=== PATIENT | male | born 1945 | race Caucasian/White ===

== ENCOUNTER 2020-07-05 05:55 | Inpatient (IN) ==
--- NOTE | 2020-06-20 11:46 | PAT Medication Instructions ---
Medication Instructions Date of Service June 20, 2020 Home Medications atorvastatin 20 mg PO HS cholecalciferol (vitamin D3) [Vitamin D3] 100 mcg PO BID coQ10 (ubiquinol) 200 mg PO QPM diclofenac sodium 75 mg PO BID ferrous gluconate 324 mg PO QPM metformin 1,000 mg PO BID multivitamin 1 tab PO QAM pregabalin [Lyrica] 100 mg PO QID sitagliptin [Januvia] 100 mg PO BID ASK your surgeon for instructions diclofenac sodium 75 mg PO BID STOP taking 2 weeks before surgery (or as soon as possible if surgery is within 2 weeks) coQ10 (ubiquinol) 200 mg PO QPM DO NOT take the morning of surgery cholecalciferol (vitamin D3) [Vitamin D3] 100 mcg PO BID metformin 1,000 mg PO BID multivitamin 1 tab PO QAM sitagliptin [Januvia] 100 mg PO BID Take morning of surgery With a small sip of water, OTHERWISE NOTHING TO EAT OR DRINK AFTER MIDNIGHT: pregabalin [Lyrica] 100 mg PO QID Take evening before surgery atorvastatin 20 mg PO HS cholecalciferol (vitamin D3) [Vitamin D3] 100 mcg PO BID ferrous gluconate 324 mg PO QPM metformin 1,000 mg PO BID pregabalin [Lyrica] 100 mg PO QID sitagliptin [Januvia] 100 mg PO BID Other Notes If you have any questions please call us at [phone] or [phone] or [phone] or [phone]
--- NOTE | 2020-06-21 11:50 | Anesthesiology Consultation ---
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 Uses PPE. Follows COVID precaution guidelines. No known COVID-19 positive contacts or current COVID-19 related symptoms. Patient fully vaccinated. Surgeon arranging preop COVID testing (scheduled 06/28; [facility]). Awaiting results. - Check BSG AM DOS Chart Review Chart Review: Acceptable Risk for Surgery and Patient seen in Pre Admission Testing Teaching & Discussion Pre-Anesthesia Teaching/Discussion Notes: Instructed NPO after midnight before surgery,except medications with 15 cc of water. Medication instructions provided according to the PAT guidelines. History Surgery Operation Date: 07/05/20 13:15 Proposed Procedures p L3-L5 Decompression Fusion, Spinal Cord Monitoring - Christian Mitchell, Height/Weight Height: 5 ft 11 in Weight: 117.5 kg Allergies Allergy/AdvReac Type Severity Reaction Status Date / Time Sulfa (Sulfonamide Allergy Unknown Unknown Verified 06/21/20 11:46 Antibiotics) SALOMÓN Inhibitors AdvReac Unknown Dyspnea, Verified 06/21/20 11:46 throat swelling Medications Home Medications Medication Instructions Recorded Confirmed Last Taken atorvastatin 20 mg PO HS 06/18/20 06/18/20 Unknown cholecalciferol (vitamin D3) 100 mcg PO BID 06/18/20 06/18/20 Unknown [Vitamin D3] coQ10 (ubiquinol) 200 mg PO QPM 06/18/20 06/18/20 Unknown diclofenac sodium 75 mg PO BID 06/18/20 06/18/20 Unknown ferrous gluconate 324 mg PO QPM 06/18/20 06/18/20 Unknown metformin 1,000 mg PO BID 06/18/20 06/18/20 Unknown multivitamin 1 tab PO QAM 06/18/20 06/18/20 Unknown pregabalin [Lyrica] 100 mg PO QID 06/18/20 06/18/20 Unknown sitagliptin [Januvia] 100 mg PO BID 06/18/20 06/18/20 Unknown Lantus U-100 Insulin 24 units INJ HS 06/21/20 06/21/20 Unknown insulin lispro 8 units INJ TIDWMEAL 06/21/20 06/21/20 Unknown Past Medical History Medical History Cancer Bladder Cancer Right kidney (20 years ago) s/p right neprectomy Chronic back pain with hip/LE radiculopathy Chronic back pain + neck Diabetes mellitus, type 2 IDDM Hyperlipidemia Obesity Sleep apnea No device Exercise / Class Metabolic Activity III < 4 Walking/Shop/Light housework Past Surgical History Surgical History H/O reduction of closed fracture Leg History of bladder surgery Polyp removal History of colonoscopy History of esophagogastroduodenoscopy (EGD) History of nephrectomy, right History of open reduction and internal fixation (ORIF) procedure Right ankle History of repair of rotator cuff Left Past Anesthesia History No Hx of Anesthesia Complications and No Family Hx of Anesthesia Complications History of PONV No Hx of PONV and No Hx of Motion Sickness Social History Smoking Status: Former smoker Do You Dip or Chew Tobacco: No Smoking End Date: 2017 Hx Alcohol Use: Yes Alcohol type: beer alcohol intake frequency: holidays/special occasions only Hx Substance Use: No Review of Systems Patient denies chest pain, shortness of breath, fever, chills, cough, wheezing, palpitations. Physical Exam Vital Signs VITALS BP 121/75 P 75 TEMP 98.0 SP02 94%RA RESP 16 PHYSICAL Full cervical extension range of motion. Full TMJ range of motion. TMD 3 finger breaths Mallampati Score 3 Dentition: missing teeth (molars) Lungs: clear throughout to auscultation Cardiac: regular rate and rhythm, no murmurs noted Spine: normal Carotid arteries: negative bruit Extremities: no edema Testing Laboratory Results Blood Type A Positive 06/21/20 12:13 Antibody Screen NEGATIVE 06/21/20 12:13 06/17/20 WBC 6.05 H/H 12.5/39.6 PLATELETS 216 SODIUM 137 POTASSIUM 4.1 CHLORIDE 101 CO2 29.2 BUN 18.9 CREATININE 0.91 GLUCOSE 224 HGBA1C 6.6% PT 10.5 PTT 31.7 INR 0.92 UA negative Electrocardiogram Date: 06/21/20 SR with marked sinus arrhythmia at 73bpm. PACs. NS TWA. Chest X-Ray Date: 06/17/20 Findings: + NAD
--- NOTE | 2020-06-22 06:27 | Electrocardiogram Report ---
Test Reason : Blood Pressure : / mmHG Vent. Rate : 073 BPM Atrial Rate : 073 BPM P-R Int : 178 ms QRS Dur : 090 ms QT Int : 332 ms P-R-T Axes : 087 087 063 degrees QTc Int : 365 ms Sinus rhythm with marked sinus arrhythmia Premature atrial complexes Nonspecific T wave abnormality Abnormal ECG No previous ECGs available Confirmed by Claudio Cuevas ([id number]) on 06/22/2020 6:26:42 AM Referred By: Christian Mitchell Confirmed By:Claudio Cuevas
[2020-07-05] MEDS ORDERED: ACETAMINOPHEN 500 MG TAB PO SCH (06:00)
[2020-07-05] MEDS ORDERED: CeleBREX 200 MG CAP PO SCH (06:00)
[2020-07-05] MEDS ORDERED: GABAPENTIN 300 MG CAP PO SCH (06:00)
[2020-07-05] MEDS ORDERED: ceFAZolin 2000MG 2,000 MG/15 ML SYR IV SCH (06:00)
[2020-07-05] MEDS ORDERED: LR 15ML/HR IV SCH (06:00)
[2020-07-05] MEDS ORDERED: MIDAZOLAM HCL 1 MG/ML 2ML VIAL ONE (06:49)
[2020-07-05] MEDS ORDERED: fentaNYL citrate 100 MCG/2 ML VIAL ONE (06:49)
[2020-07-05] MEDS ORDERED: PROPOFOL IV EMULSION 10 MG/ML 20 ML VIAL IV ONE (06:49)
[2020-07-05] MEDS ORDERED: GLYCOPYRROLATE 0.2 MG/ML VIAL ONE (06:49)
[2020-07-05] MEDS ORDERED: ONDANSETRON INJ 2 MG/ML 2 ML VIAL ONE (06:49)
[2020-07-05] MEDS ORDERED: NEOSTIGMINE METHYLSULFATE 1 MG/ML 10ML VIAL ONE (06:49)
[2020-07-05] MEDS ORDERED: DEXAMETHASONE SOD INJ 4 MG/ML VIAL ONE (06:49)
[2020-07-05] MEDS ORDERED: LIDOCAINE HCL 2% 2 ML VIAL/AMP(20MG/ML) INFIL ONE (06:49)
[2020-07-05] MEDS ORDERED: SUGAMMADEX SODIUM 200 MG/2 ML VIAL IV ONE (07:01)
[2020-07-05] MEDS ORDERED: BUPIVACAINE 0.5 % 5 MG/1 ML MPF 30ML VIAL ONE (07:20)
[2020-07-05] MEDS ORDERED: fentaNYL citrate 100 MCG/2 ML VIAL IV PRN (07:22)
[2020-07-05] MEDS ORDERED: PROMETHAZINE HCL 6.25 MG in SODIUM CHLORIDE 0.9% 50 ML IV PRN (07:22)
[2020-07-05] MEDS ORDERED: ONDANSETRON INJ 2 MG/ML 2 ML VIAL IV PRN ×2 (07:22→11:04)
[2020-07-05] MEDS ORDERED: ePHEDrine sulfate 50 MG/ML AMP IV PRN (07:22)
[2020-07-05] MEDS ORDERED: ATROPINE SULFATE 0.1 MG/ML 10ML SYR IV PRN (07:22)
--- NOTE | 2020-07-05 07:34 | History & Physical Bridge Note ---
Date of Service July 05, 2020 History & Physical Bridge Note I have examined the patient, reviewed the History & Physical and in the interval since the performance of the History & Physical I have noted the following changes of clinical significance: no changes noted
--- NOTE | 2020-07-05 07:35 | History & Physical Report ---
Date of Service July 05, 2020 Assessment & Plan (1) Neurogenic claudication due to lumbar spinal stenosis: Admission and Anticipated Discharge Date Admission Date: L3-L5 decompression fusion History of Present Illness Chief Complaint: Back and leg pain Primary Care Provider: Jacob Bear DO This is a 75-year-old male presents with chronic persistent back and leg pain. Failing course of nonoperative care is here for surgical invention. Allergies Allergy/AdvReac Type Severity Reaction Status Date / Time Sulfa (Sulfonamide Allergy Unknown Unknown Verified 07/05/20 06:32 Antibiotics) SALOMÓN Inhibitors AdvReac Unknown Dyspnea, Verified 07/05/20 06:32 throat swelling Home Medications Medication Instructions Recorded Confirmed Type atorvastatin 20 mg PO HS 06/18/20 07/05/20 History cholecalciferol (vitamin D3) 100 mcg PO BID 06/18/20 07/05/20 History [Vitamin D3] coQ10 (ubiquinol) 200 mg PO QPM 06/18/20 07/05/20 History diclofenac sodium 75 mg PO BID 06/18/20 07/05/20 History ferrous gluconate 324 mg PO QPM 06/18/20 07/05/20 History metformin 1,000 mg PO BID 06/18/20 07/05/20 History multivitamin 1 tab PO QAM 06/18/20 07/05/20 History pregabalin [Lyrica] 100 mg PO QID 06/18/20 07/05/20 History sitagliptin [Januvia] 100 mg PO DAILY 06/18/20 07/05/20 History Lantus U-100 Insulin 24 units INJ HS 06/21/20 07/05/20 History insulin lispro 8 units INJ TIDWMEAL 06/21/20 07/05/20 History gabapentin 100 mg PO QID 07/05/20 07/05/20 History Past Med/Surg History Medical History Cancer Bladder Cancer Right kidney (20 years ago) s/p right neprectomy Chronic back pain with hip/LE radiculopathy Chronic back pain + neck Diabetes mellitus, type 2 IDDM Hyperlipidemia Obesity Sleep apnea No device Surgical History H/O reduction of closed fracture Leg History of bladder surgery Polyp removal History of colonoscopy History of esophagogastroduodenoscopy (EGD) History of nephrectomy, right History of open reduction and internal fixation (ORIF) procedure Right ankle History of repair of rotator cuff Left Social History Smoking Status: Former smoker Smoking End Date: Quit 2017; Second Hand Exposure: Yes (PARENTS SMOKED); Do You Dip or Chew Tobacco: No; Hx Alcohol Use: Yes Alcohol type: beer Hx Substance Use: No Preferred Language: Luxembourgish Communication Ability: Effective Family Worker Required: No Beliefs That Will Affect Care: None Current Living Situation: Alone Other Information That Helps Us Care for You: No Feels Safe at Home: Yes Safety Concerns: Feels Safe At This Time Assistive Devices: Glasses and Hearing Aid - Bilateral Physical Exam Physical Exam: Patient is alert and oriented Heart regular in rhythm Lungs clear to auscultation Results & Data ([facility]) Vital Signs (Past 12 Hours) Vital Signs Temp Pulse Resp BP Pulse Ox 07/05/20 06:57 36.9 C 07/05/20 06:26 37.4 C 80 20 136/87 93
[2020-07-05] MEDS ORDERED: HYDROmorphone INJ 2 MG/ML SYR/VIAL ONE (08:46)
[2020-07-05] MEDS ORDERED: FLOSEAL HEMOSTATIC MATRIX 10ML TOP ONE (09:18)
--- NOTE | 2020-07-05 09:27 | Operative Report ---
Post Operative Report Pre & Post Diagnosis Operation Date: 07/05/20 07:45 Pre-Op Diagnosis: Neurogenic claudication due to lumbar spinal stenosis Post-Op Diagnosis: Neurogenic claudication due to lumbar spinal stenosis I identified the patient and participated in the time-out.: Yes Procedure Operation Date: 07/05/20 07:45 Actual Procedures #1 lumbar decompression bilateral medial facetectomies and foraminotomies L3-4 and L4-5. #2 posterior spinal fusion L4-5. #3 placement posterior instrumentation L4-5. #4 interbody fusion L4-5. #5 placement peek cage 15 x 26 mm at L4-5. #6 placement locally harvested morselized autograft and posterior gutters. #7 placement of I factor bone graft in the interbody space and posterior lateral gutters. Surgeon Christian Mitchell, DO Chemical Librarian Samuel Savage Estimated Blood Loss 400 Findings See Below The patient is 5 foot 11 inches tall weighing over 115 kg with a BMI in excess of 35. Patient's body habitus did contribute to significant technical diff iculty requiring her deepest retractors longus instruments in order to perform his procedure. This had at least 50% increase to the operative time. Specimens None Indications This is a 75-year-old male who presents above-mentioned diagnosis after failing course of nonoperative care is here for surgical invention. Description of Procedure Patient was met with identified informed consent obtained. Patient was then taken to the operative suite underwent a patient placed in prone position injectable top Paul frame. All bony prominences well-padded eyes inspected to ensure no external pressure placed upon the. At this point the lumbar spine is prepped and draped in a sterile fashion. Sharp dissection with the assistance of Bovie cautery performed down to and exposing the lamina and transverse processes of L3-L4 L4-5 bilaterally. From caudal to cephalad fashion complete laminectomy L5 partial laminectomy of L3 was performed including bilateral medial facetectomies and foraminotomies addressing severe spinal stenosis. Pedicle screws were then placed in L4 and L5 bilaterally with assistance of fluoroscopy the proper sized marques placed. By way of a transforaminal portion left complete discectomy was performed endplates curetted to subcortical bleeding bone and a 15 x 26 mm peek cage filled with I factor tapped in position. The rods were then compressed locked in final position bilaterally. The transverse processes of L4 and L5 burred to subcortical being bone. Locally harvested morselized autograft and I factor was placed in the posterior gutters. 15 round TACO drain inserted. The incision was then closed with 1 Vicryl the fascia 2-0 Vicryl subcutaneously and 4 Monocryl for final skin closure. Steri- Strip sterile dressings placed. Patient will continue PACU stable condition. Please note spinal cord monitoring was utilized at the procedure and no changes noted. Lastly Samuel Savage was present at the entire surgery involved the patient positioning complex portions of the surgery and final skin closure. I attest to the content of the Intraoperative Record and any orders documented therein. Any exceptions are noted below.
--- NOTE | 2020-07-05 09:35 | Fluoroscopy Report ---
FL lumbar spine 2-3V CLINICAL HISTORY: L4-L5 decompression. COMPARISON STUDY: None. FLUOROSCOPY TIME: 18 seconds. FLUOROSCOPIC IMAGES: 2 FINDINGS: Fluoroscopy was provided during L4-L5 discectomy, posterior decompression and bilateral ped icle screw fusion. Hardware is intact. There are no unexpected radiopaque foreign bodies. IMPRESSION: Fluoroscopy provided during L4-L5 discectomy, posterior decompression and bilateral pedi jd screw fusion. ACT 112: Negative or not required by law. Electronically signed by: Juanito Snyder M.D. 07/05/2020 9:34 AM
[2020-07-05] MEDS ORDERED: HYDROmorphone INJ 1 MG/ML SYRINGE IV PRN (11:04)
[2020-07-05] MEDS ORDERED: ACETAMINOPHEN 500 MG TAB PO PRN (11:04)
[2020-07-05] MEDS ORDERED: DO NOT ADMINISTER PNEUMOCOCCAL VACCINE PRN (11:04)
[2020-07-05] MEDS ORDERED: FAMOTIDINE 20 MG TAB PO PRN (11:04)
[2020-07-05] MEDS ORDERED: METOCLOPRAMIDE HCL INJ 5 MG/ML 2 ML VIAL IV PRN (11:04)
[2020-07-05] MEDS ORDERED: diphenhydrAMINE Capsule 25 MG CAP PO PRN (11:04)
[2020-07-05] MEDS ORDERED: MAGNESIUM HYDROXIDE SUSP 30 ML UDC PO PRN (11:04)
[2020-07-05] MEDS ORDERED: PROMETHAZINE HCL 12.5 MG in SODIUM CHLORIDE 0.9% 50 ML IV PRN (11:04)
[2020-07-05] MEDS ORDERED: NALOXONE HCL 0.4 MG/1 ML VIAL/CARP IV PRN (11:04)
[2020-07-05] MEDS ORDERED: ONDANSETRON 4 MG OD TAB PO PRN (11:04)
[2020-07-05] MEDS ORDERED: bisacodyL 10 MG SUPP PR PRN (11:04)
[2020-07-05] MEDS ORDERED: oxyCODONE HCL IR 5 MG TAB (IMMEDIATE RELEASE) PO PRN (11:04)
[2020-07-05] MEDS ORDERED: hydrOXYzine HCl 25 MG TAB PO PRN (11:04)
[2020-07-05] MEDS ORDERED: LORazepam 0.5 MG/1 ML VIAL IV PRN (11:04)
[2020-07-05] MEDS ORDERED: DO NOT ADMINISTER FLU VACCINE PRN (11:04)
[2020-07-05] MEDS ORDERED: SOD PHOSPHATE/SOD BIPHOSPHATE ENEMA 132 ML BTL PR PRN (11:04)
[2020-07-05] MEDS ORDERED: HYDROmorphone INJ 0.5 MG/0.5 ML SYR IV PRN (11:04)
[2020-07-05] MEDS ORDERED: ALUMINUM/MAGNESIUM SUSP 30 ML UDC PO PRN (11:04)
[2020-07-05] MEDS ORDERED: ACETAMINOPHEN 1,000 MG/100 ML VIAL IV PRN (11:04)
[2020-07-05] MEDS ORDERED: LORazepam 0.5 MG TAB PO PRN (11:04)
--- NOTE | 2020-07-05 11:08 | Anesthesiology Progress Note ---
Date of Service July 05, 2020 Anesthesia Post Procedure Vital Signs Vital Signs: Temp Pulse Pulse Resp BP BP Pulse Ox 07/05/20 10:50 81 14 135/75 95 07/05/20 10:40 82 14 133/82 98 07/05/20 10:30 36.4 C L 86 14 134/54 L 95 07/05/20 10:20 85 14 153/83 H 97 07/05/20 10:10 89 14 158/78 H 95 07/05/20 10:00 83 15 119/66 94 07/05/20 09:50 36.6 C 90 15 193/104 H 97 07/05/20 06:57 36.9 C 07/05/20 06:26 37.4 C 80 20 136/87 93 Pain Intensity Lower Back: Pain Intensity: 4 Transfer of Care Handoff Completed per policy Notes Mental Status: alert / awake / arousable Patient Amnestic to Procedure: Yes Nausea / Vomiting: adequately controlled Pain: adequately controlled Airway Patency, RR, SpO2: stable & adequate BP & HR: stable & adequate Hydration State: stable & adequate Anesthetic Complications: no major complications apparent
[2020-07-05] MEDS: SODIUM CHLORIDE 0.9% 1000ML 1,000 ML IV SCH ×2 (11:10→17:31)
--- NOTE | 2020-07-05 11:38 | Hospitalist Consultation ---
Date of Consultation July 05, 2020 Assessment & Plan (1) S/P spinal surgery: This is a 75-year-old male with PMH of type 2 diabetes, hyperlipidemia, bladder cancer, history of nephrectomy, EMILY not on cpap, lumbar spine stenosis who is POD#0 s/p lumbar decompression L3-L5 posterior spinal fusion L4-L5 by Dr. Mitchell. POD#0 s/p lumbar decompression L3-L5 posterior spinal fusion L4-L5 by Dr. Mitchell Per ortho for pain control, wound care, anticoagulation and activities Monitor H&H for post operative anemia, continue incentive spirometry, PT/OT when appropriate (2) Diabetes mellitus, type 2: Recent A1c 6.6 from earlier this month, per patient Hold home agents SSI while in-patient Glycemic consult placed BSG AC HS (3) Hyperlipidemia: Continue statin (4) Bladder cancer: Remote history of bladder and kidney cancer in 2000, s/p R nephrectomy (5) Sleep apnea: Not on CPAP, supplemental O2 HS PRN PCP: Chema ([facility]) Dispo: Per primary service Patient seen in collaboration with Dr. Mcgregor. Please see addendum. Supervising Physician Co-Signing Physician Notes pt seen and examined , care co-ordinated with Kelly thao PA-c this is a 75 yo M s/p spinal decompression surgery for chronic low back pain with radiculopathy doing well post op no complain of sob or chest pain , no cough no fever or chills medically stable please refer to further documentation by Kelly Thao PA-C for discussion of other medical issues Samantha Mcgregor MD History of Present Illness Reason for Consultation: Postop medical management Attending Physician: Christian Mitchell DO History of Present Illness This is a 75-year-old male with PMH of type 2 diabetes, hyperlipidemia, history of bladder and renal cancer, history of nephrectomy, EMILY not on CPAP, lumbar spine stenosis who is POD#0 s/p lumbar decompression L3-L5 posterior spinal fusion L4-L5 by Dr. Mitchell. Feeling well post-operatively. Minimal surgical site discomfort at 3/10. Tolerating clear liquids without issue. Denies any chest p ain or shortness of breath. Denies fever, chills, lightheadedness, nausea, vomiting, abdominal pain, dysuria, diarrhea or constipation. Marshall catheter in place draining urine. Follows with Dr. Bear in [facility]. Allergies Allergy/AdvReac Type Severity Reaction Status Date / Time Sulfa (Sulfonamide Allergy Unknown Unknown Verified 07/05/20 06:32 Antibiotics) SALOMÓN Inhibitors AdvReac Unknown Dyspnea, Verified 07/05/20 06:32 throat swelling Home Medications Medication Instructions Recorded Confirmed Type atorvastatin 20 mg PO HS 06/18/20 07/05/20 History cholecalciferol (vitamin D3) 100 mcg PO BID 06/18/20 07/05/20 History [Vitamin D3] coQ10 (ubiquinol) 200 mg PO QPM 06/18/20 07/05/20 History diclofenac sodium 75 mg PO BID 06/18/20 07/05/20 History ferrous gluconate 324 mg PO QPM 06/18/20 07/05/20 History metformin 1,000 mg PO BID 06/18/20 07/05/20 History multivitamin 1 tab PO QAM 06/18/20 07/05/20 History pregabalin [Lyrica] 100 mg PO QID 06/18/20 07/05/20 History sitagliptin [Januvia] 100 mg PO DAILY 06/18/20 07/05/20 History Lantus U-100 Insulin 24 units INJ HS 06/21/20 07/05/20 History insulin lispro 8 units INJ TIDWMEAL 06/21/20 07/05/20 History Patient History Medical History (Updated 07/05/20 @ 12:30 by Kelly Thao PA-C) Cancer Bladder Chronic back pain with hip/LE radiculopathy Chronic back pain + neck Diabetes mellitus, type 2 IDDM Hyperlipidemia Obesity Sleep apnea No device Surgical History (Updated 07/05/20 @ 12:30 by Kelly Thao PA-C) H/O reduction of closed fracture Leg History of bladder surgery Polyp removal History of colonoscopy History of esophagogastroduodenoscopy (EGD) History of nephrectomy, right History of open reduction and internal fixation (ORIF) procedure Right ankle History of repair of rotator cuff Left Family History (Updated 07/05/20 @ 13:11 by Kelly Thao PA-C) Other Cancer Social History Smoking Status: Former smoker Smoking End Date: Quit 2017; Second Hand Exposure: Yes (PARENTS SMOKED); Do You Dip or Chew Tobacco: No; Hx Alcohol Use: Yes Alcohol type: beer Hx Substance Use: No Preferred Language: Botswanan Communication Ability: Effective Business Teacher Required: No Beliefs That Will Affect Care: None Current Living Situation: Alone Other Information That Helps Us Care for You: No Feels Safe at Home: Yes Safety Concerns: Feels Safe At This Time Assistive Devices: Walker Review of Systems Review of Systems: At least ten systems reviewed and negative except as noted in the HPI. Physical Exam Physical Exam: General Appearance: WD/WN, vitals as above, NAD, sitting up in bed, pleasant, conversing easily Head: normocephalic, atraumatic Eyes: normal inspection, PERRL, conjunctivae normal, anicteric sclerae ENT: external ear and nose normal, oropharynx normal Neck: normal visual inspection, trachea midline, no thyromegaly Respiratory: normal respiratory effort, lungs clear to auscultation, no wheeze, rales, rhonchi. No accessory muscle use Cardiovascular: regular rate, rhythm, no murmur, normal peripheral pulses, no BLE edema Abdomen/GI: normal bowel sounds, soft, nontender, no hepatosplenomegaly Extremities/Musculoskeletal: Surgical dressing c/d/i. TACO drain visualized. No cyanosis or clubbing, extremities motor strength 5/5 Neurologic: PERRL, CN's II-XI intact bilaterally and moves all extremities Psychiatric: A+Ox3, euthymic affect Skin: no rashes, normal color, warm/dry Results & Data Results & Data ([facility]) Vital Signs (Past 12 Hours) Vital Signs Temp Pulse Pulse Pulse Resp BP BP 07/05/20 11:26 36.5 C 89 16 127/81 07/05/20 11:04 36.5 C 87 16 152/84 H 07/05/20 10:50 81 14 135/75 07/05/20 10:40 82 14 133/82 07/05/20 10:30 36.4 C L 86 14 134/54 L 07/05/20 10:20 85 14 153/83 H 07/05/20 10:10 89 14 158/78 H 07/05/20 10:00 83 15 119/66 07/05/20 09:50 36.6 C 90 15 193/104 H 07/05/20 06:57 36.9 C 07/05/20 06:26 37.4 C 80 20 136/87 Pulse Ox 07/05/20 11:26 100 07/05/20 11:04 97 07/05/20 10:50 95 07/05/20 10:40 98 07/05/20 10:30 95 07/05/20 10:20 97 07/05/20 10:10 95 07/05/20 10:00 94 07/05/20 09:50 97 07/05/20 06:57 07/05/20 06:26 93 Diagnostic Findings Lumbar Spine X-Ray 07/05/20 07:45 FL lumbar spine 2-3V CLINICAL HISTORY: L4-L5 decompression. COMPARISON STUDY: None. FLUOROSCOPY TIME: 18 seconds. FLUOROSCOPIC IMAGES: 2 FINDINGS: Fluoroscopy was provided during L4-L5 discectomy, posterior decompression and bilateral pedicle screw fusion. Hardware is intact. There are no unexpected radiopaque foreign bodies. IMPRESSION: Fluoroscopy provided during L4-L5 discectomy, posterior decompression and bilateral pedicle screw fusion. ACT 112: Negative or not required by law. Electronically signed by: Juanito Snyder M.D. 07/05/2020 9:34 AM
[2020-07-05] MEDS ORDERED: ROCURONIUM BROMIDE 10 MG/ML 5 ML VIAL IV ONE (12:02)
[2020-07-05] MEDS ORDERED: PHARMACY GLYCEMIC MGMT CONSULT SCH (12:14)
--- NOTE | 2020-07-05 12:14 | Pharmacy Report ---
Pharmacy Glycemic Short Note 2 - Date of Service July 05, 2020 - Glycemic Short BSG Results (Last 24 hours): 07/05/20 07/05/20 06:21 09:50 POC Glucose 170 H 210 H OUTPATIENT ANTIDIABETIC REGIMEN: * Humalog 8 units TID with meals * Lantus 24 units HS * Januvia 100mg PO daily * Metformin 1000mg PO BID ASSESSMENT: * 75 year old male s/p lumbar spinal fusion and decompression surgery, type 2 diabetic, unknown control, A1c ordered * Pt is maintained on oral antidiabetic agents and insulin as an outpatient * Oral agents are not recommended for inpatient use d/t drug interactions, changing PO intake, and difficulty titrating for acute hyper/hypoglycemia. ADA recommends re-initiating outpatient oral agents 1-2 days prior to discharge if/when appropriate if they were held on admission. * Will hold oral agents for admission and utilize SQ basal bolus insulin regimen which is the recommended regimen for inpatient glycemic control. * Will initiate weight based insulin dosing stressed for steroid coverage + o utpatient needs * Patient received Dexamethasone 8mg IV Preop today PLAN FOR INPATIENT GLYCEMIC CONTROL: * Hold outpatient oral diabetes medications * Basal insulin * Lantus 40 units SQ x1 dose now * Lantus SQ HS based on BSG * 15 units for BSG < 110mg/dl * 25 units for BSG 110-180mg/dl * 35 units for BSG > 180mg/dl * Bolus insulin * NovoLog per scale ACHS or Q6hrs while NPO * Goal Range: Low 110 mg/dL - High 140 mg/dL * Correction Factor: 15 mg/dL/unit * Nutritional / Prandial insulin per carb ratio of 1 unit per 5 grams CHO consumed PLAN FOR DISCHARGE: * to be determined
[2020-07-05] MEDS ORDERED: INSULIN GLARGINE SOLOSTAR 100 UNITS/ML 3 ML PEN SC ONE (12:30)
[2020-07-05] MEDS ORDERED: DEXTROSE 50% 50 ML SYRINGE IV PRN (12:30)
[2020-07-05] MEDS ORDERED: GLUCOSE 40% GEL 15 GM TUBE PO PRN (12:30)
[2020-07-05] MEDS ORDERED: GLUCOSE 10 TABS/TUBE PO PRN (12:30)
[2020-07-05] MEDS ORDERED: CARBOHYDRATES FOR HYPOGLYCEMIA PO PRN (12:30)
[2020-07-05] MEDS ORDERED: GLUCAGON FOR INJ 1 MG VIAL SQ PRN (12:30)
[2020-07-05] MEDS ORDERED: GABAPENTIN 100 MG CAP PO SCH (13:00)
[2020-07-05] MEDS: INSULIN ASPART 100 UNITS/ML 3 ML PEN SC SCH ×3 (13:23→20:50)
[2020-07-05] MEDS: PREGABALIN 100 MG CAP PO SCH ×3 (13:25→21:02)
[2020-07-05] MEDS: traMADol HCL 50 MG TABLET PO PRN ×2 (15:27→22:47)
[2020-07-05] MEDS: ceFAZolin 2000MG 2,000 MG/15 ML SYR IV SCH (16:00)
[2020-07-05] MEDS: INSULIN GLARGINE SOLOSTAR 100 UNITS/ML 3 ML PEN SC SCH (20:52)
[2020-07-05] MEDS: ATORVASTATIN 20 MG TAB PO SCH (20:59)
[2020-07-05] MEDS: DOCUSATE SODIUM/SENNA 50/8.6MG TAB PO SCH (20:59)
[2020-07-05] MEDS: FERROUS GLUCONATE 324 MG TAB PO SCH (21:00)
[2020-07-05] MEDS: CHOLECALCIFEROL 1,000 UNITS 25 MCG TAB PO SCH (21:00)
[2020-07-05] MEDS ORDERED: NON-FORMULARY MEDICATION (Coq10 (Ubiquinol) 200 mg Capsule) PO SCH (21:00)
[2020-07-06] MEDS: INSULIN ASPART 100 UNITS/ML 3 ML PEN SC SCH ×6 (00:04→20:37)
[2020-07-06] MEDS: ceFAZolin 2000MG 2,000 MG/15 ML SYR IV SCH (00:08)
[2020-07-06] MEDS: POLYETHYLENE (MIRALAX) 17 GM PACK PO SCH ×4 (05:09→23:15)
[2020-07-06 06:11] LABS: Eosinophils # (auto) 0.01 K/uL (0-0.5); Eosinophils % (auto) 0.1 %; Hematocrit (blood only) 31.5 % (42-52); Hemoglobin 10.3 g/dL (14.0-18.0); Immature Granulocytes # (auto) 0.03 K/uL (0.00-0.02); Immature Granulocytes % (auto) 0.3 %; Lymphocytes # (auto) 1.68 K/uL (1.2-3.4); Lymphocytes % (auto) 17.9 %; Mean Corpuscular Hemoglobin 32.2 pg (25-34); Mean Corpuscular Hgb Conc 32.7 g/dL (32-36); Mean Corpuscular Volume 98.4 fL (80-100); Mean Platelet Volume 9.9 fL (7.4-10.4); Monocytes # (auto) 0.84 K/uL (0.11-0.59); Neutrophils % (auto) 72.7 %; Platelet Count 192 K/uL (130-400); RDW Coefficient of Variation 12.9 % (11.5-14.5); RDW Standard Deviation 46.4 fL (36.4-46.3); White Blood Count 9.36 K/uL (4.8-10.8)
[2020-07-06 06:28] LABS: BUN Creatinine Ratio 21.8 (10-20); Calcium 8.8 mg/dl (8.5-10.1); Creatinine Clr Calc Pharmacy 110.6 ml/min; Est GFR (African American) 104.3; Potassium 4.2 mmol/L (3.5-5.1)
[2020-07-06 07:22] LABS: Estimated Average Glucose 157 mg/dl; Hemoglobin A1C 7.1 % (4.5-5.6)
--- NOTE | 2020-07-06 08:14 | Orthopedic Progress Note ---
Date of Service July 06, 2020 Assessment & Plan (1) S/P spinal surgery: Patient is doing well postoperative day 1. We will start physical therapy today. To continue with pain control. DVT prophylaxis is in the form of teds and SCDs. Continue with aggressive bowel regimen. Anticipate discharge home early next week. Admission and Anticipated Discharge Date Admission Date: July 05, 2020 Supervising Physician Co-Signing Physician Notes Dr. Christian Mitchell Subjective Patient is postoperative day 1 posterior lumbar decompression and fusion L3-[address] Mitchell. He has had an uneventful evening. Moderate back pain. Denies radicular leg pain. TACO drain output last shift was 50 cc. H&H is morning are 10.3 and 31.5 respectively. No other complaints. Review of Systems Review of Systems: All systems reviewed & are unremarkable except as noted in HPI & below Physical Exam Physical Exam: Alert and oriented x3 no acute distress Lumbar dressing is clean dry and intact with functioning TACO drain Motor testing is 5/5 bilaterally. Calves soft nontender bilaterally. Constitutional: WD/WN, vitals as above well developed Eyes: normal visual alvarez by confrontation ENMT: external ear and nose normal, oropharynx normal Neck: normal visual inspection Respiratory: normal respiratory effort Cardiovascular: Extremities: normal capillary refill Chest (Breasts): Chest: normal inspection of chest Gastrointestinal (Abdomen): Inspection/Auscultation: abdomen normal to inspection Musculoskeletal: Extremities: extremities normal to inspection and strength 5/5 throughout Skin: no rashes, warm and dry Neurologic: normal touch/pain/proprioception and moves all extremities Psychiatric: A+Ox3, euthymic affect Eye Contact: good eye contact Results & Data ([facility]) Vital Signs (Past 12 Hours) Vital Signs Temp Pulse Resp BP Pulse Ox 07/06/20 07:13 36.8 C 69 16 127/73 96 07/06/20 03:40 36.5 C 76 20 109/64 93 07/05/20 22:40 36.6 C 83 22 116/67 96
[2020-07-06] MEDS: CHOLECALCIFEROL 1,000 UNITS 25 MCG TAB PO SCH ×2 (08:53→20:37)
[2020-07-06] MEDS: MULTIVITAMIN TAB PO SCH (08:53)
[2020-07-06] MEDS: PREGABALIN 100 MG CAP PO SCH ×4 (08:56→20:36)
[2020-07-06] MEDS ORDERED: SITagliptin PHOSPHATE 100 MG TAB PO SCH (09:00)
[2020-07-06] MEDS: traMADol HCL 50 MG TABLET PO PRN ×2 (14:29→19:09)
--- NOTE | 2020-07-06 15:20 | Hospitalist Progress Note ---
Date of Service July 06, 2020 Assessment & Plan (1) S/P spinal surgery: This is a 75-year-old male with PMH of type 2 diabetes, hyperlipidemia, bladder cancer, history of nephrectomy, EMILY not on cpap, lumbar spine stenosis who is POD#0 s/p lumbar decompression L3-L5 posterior spinal fusion L4-L5 by Dr. Mitchell. POD#1 s/p lumbar decompression L3-L5 posterior spinal fusion L4-L5 by Dr. Mitchell Per ortho for pain control, wound care, anticoagulation and activities Doing well with PT/OT post op H&H stable (2) Diabetes mellitus, type 2: Recent A1c 6.6 from earlier this month, per patient Hold home agents SSI while in-patient BSG AC HS (3) Hyperlipidemia: Continue statin (4) Bladder cancer: Remote history of bladder and kidney cancer in 2000, s/p R nephrectomy (5) Sleep apnea: Not on CPAP, supplemental O2 HS PRN PCP: Chema ([facility]) Dispo: Per primary service Admission and Anticipated Discharge Date Admission Date: July 05, 2020 Subjective s/p lumber decompression sugery POD #1 doing well walking in room multiple times , did well in PT eval no complain of chest pain or SOB no fever or chills post surgery back pain well controlled with current meds Review of Systems Review of Systems: All systems reviewed & are unremarkable except as noted in Subjective Physical Exam Physical Exam: Physical exam: General: No acute distress, alert awake oriented x3 HEENT: PERRLA, EOMI, Heart: Regular S1-S2, no carotid bruit, no JVD, no lower extremity edema Lungs: Clear to auscultate, no wheeze or rales Abdomen: Soft nontender, no organomegaly Extremity: s/p back surgery , TACO drain present , normal strength on bilat lower ext , normal sensation Neuro: No focal neurological deficit normal speech, normal visual field, Motor strength : normal both upper and lower extremity, sensation intact Psych: Alert awake oriented x3, normal affect Results & Data Results & Data ([facility]) Vital Signs (Past 12 Hours) Vital Signs Temp Pulse Resp BP Pulse Ox 07/06/20 14:45 36.7 C 76 16 99/58 L 95 07/06/20 11:06 36.9 C 70 16 106/62 95 07/06/20 07:13 36.8 C 69 16 127/73 96 05/01/21 03:40 36.5 C 76 20 109/64 93
[2020-07-06] MEDS: DOCUSATE SODIUM/SENNA 50/8.6MG TAB PO SCH (20:36)
[2020-07-06] MEDS: FERROUS GLUCONATE 324 MG TAB PO SCH (20:36)
[2020-07-06] MEDS: ATORVASTATIN 20 MG TAB PO SCH (20:37)
[2020-07-06] MEDS: INSULIN GLARGINE SOLOSTAR 100 UNITS/ML 3 ML PEN SC SCH (20:39)
[2020-07-07] MEDS: POLYETHYLENE (MIRALAX) 17 GM PACK PO SCH (05:19)
[2020-07-07] MEDS: MULTIVITAMIN TAB PO SCH (07:35)
[2020-07-07] MEDS: CHOLECALCIFEROL 1,000 UNITS 25 MCG TAB PO SCH ×2 (07:35→20:43)
[2020-07-07] MEDS: INSULIN ASPART 100 UNITS/ML 3 ML PEN SC SCH ×4 (07:36→20:48)
[2020-07-07] MEDS: PREGABALIN 100 MG CAP PO SCH ×4 (07:36→20:43)
--- NOTE | 2020-07-07 08:09 | Orthopedic Progress Note ---
Date of Service July 07, 2020 Assessment & Plan (1) Neurogenic claudication due to lumbar spinal stenosis: Patient is postoperative day 2 L3-[address] Mitchell. He is doing great. We will continue physical therapy today. Continue with pain control. Continue with aggressive bowel regimen. DVT prophylaxis is in the form of teds and SCDs. Maintain TACO drain. Anticipate discharge home tomorrow Admission and Anticipated Discharge Date Admission Date: July 05, 2020 Supervising Physician Co-Signing Physician Notes Dr. Christian Mitchell Subjective Patient is doing great. Moderate back pain. Denies radicular leg pain. He is passing flatus but no bowel movement yet. Yesterday in physical therapy ambulating 150 feet plus ambulating in the hallways. TACO drain output last shift was 45 cc. No other complaints. Review of Systems Review of Systems: All systems reviewed & are unremarkable except as noted in HPI & below Physical Exam Physical Exam: He is sitting in a chair eating breakfast no acute distress Alert and oriented x3 Calves are soft nontender bilaterally Strength is intact bilateral lower extremities Lumbar dressing is clean dry and intact with functioning TACO drain \ Constitutional: WD/WN, vitals as above well developed Eyes: normal visual alvarez by confrontation ENMT: external ear and nose normal, oropharynx normal Neck: normal visual inspection Respiratory: normal respiratory effort Cardiovascular: Extremities: normal capillary refill Chest (Breasts): Chest: normal inspection of chest Gastrointestinal (Abdomen): Inspection/Auscultation: abdomen normal to inspection Musculoskeletal: no cyanosis or clubbing, extremities motor strength 5/5 Extremities: extremities normal to inspection and strength 5/5 throughout Skin: no rashes, warm and dry Neurologic: normal touch/pain/proprioception and moves all extremities Psychiatric: A+Ox3, euthymic affect Eye Contact: good eye contact Results & Data ([facility]) Vital Signs (Past 12 Hours) Vital Signs Temp Pulse Resp BP BP Pulse Ox 07/07/20 07:20 37.2 C 72 16 127/78 95 07/06/20 22:58 36.5 C 76 17 108/70 95
--- NOTE | 2020-07-07 10:17 | Pharmacy Report ---
Pharmacy Glycemic Short Note 2 - Date of Service July 07, 2020 - Glycemic Short BSG Results (Last 24 hours): 07/06/20 07/06/20 07/06/20 12:00 17:00 17:02 POC Glucose 152 H 62 L* 64 L* 07/06/20 07/06/20 07/07/20 17:20 20:30 07:33 POC Glucose 82 136 H 120 H OUTPATIENT ANTIDIABETIC REGIMEN: * Humalog 8 units TID with meals * Lantus 24 units HS * Januvia 100mg PO daily * Metformin 1000mg PO BID ASSESSMENT: 07/07 * Blood sugars well controlled except for one low of 64mg/dl pre-dinner yesterday, despite loosening CF/CR prior * Loosen CF/CR further to prevent hypoglycemia * Fasting 120mg/dl - continue Lantus on scale, eliminate higher dose 07/05 * 75 year old male s/p lumbar spinal fusion and decompression surgery, type 2 diabetic, unknown control, A1c ordered * Pt is maintained on oral antidiabetic agents and insulin as an outpatient * Oral agents are not recommended for inpatient use d/t drug interactions, changing PO intake, and difficulty titrating for acute hyper/hypoglycemia. ADA recommends re-initiating outpatient oral agents 1-2 days prior to discharge if/when appropriate if they were held on admission. * Will hold oral agents for admission and utilize SQ basal bolus insulin regimen which is the recommended regimen for inpatient glycemic control. * Will initiate weight based insulin dosing stressed for steroid coverage + outpatient needs * Patient received Dexamethasone 8mg IV Preop today PLAN FOR INPATIENT GLYCEMIC CONTROL: * Hold outpatient oral diabetes medications * Basal insulin * Lantus SQ HS based on BSG * 15 units for BSG < 110mg/dl * 25 units for BSG 110mg/dl or greater * Bolus insulin * NovoLog per scale ACHS or Q6hrs while NPO * Goal Range: Low 110 mg/dL - High 140 mg/dL * Correction Factor: 25 mg/dL/unit * Nutritional / Prandial insulin per carb ratio of 1 unit per 9 grams CHO consumed PLAN FOR DISCHARGE: * A1c 6.6% in June per patient, continue outpatient regimen
[2020-07-07] MEDS: traMADol HCL 50 MG TABLET PO PRN ×2 (11:17→19:37)
--- NOTE | 2020-07-07 12:29 | Hospitalist Progress Note ---
Date of Service July 07, 2020 Assessment & Plan (1) S/P spinal surgery: This is a 75-year-old male with PMH of type 2 diabetes, hyperlipidemia, bladder cancer, history of nephrectomy, EMILY not on cpap, lumbar spine stenosis who is POD#0 s/p lumbar decompression L3-L5 posterior spinal fusion L4-L5 by Dr. Mitchell. POD#2 s/p lumbar decompression L3-L5 posterior spinal fusion L4-L5 by Dr. Mitchell Back pain continues to improve, Doing well with PT/OT post op H&H stable Continue management as per Dr. Mitchell (2) Diabetes mellitus, type 2: Recent A1c 6.6 from earlier this month, per patient Hold home agents will be resumed on discharge SSI while in-patient BSG AC HS (3) Hyperlipidemia: Continue statin (4) Bladder cancer: Remote history of bladder and kidney cancer in 2000, s/p R nephrectomy Does not have any urinary symptoms (5) Sleep apnea: Not on CPAP, supplemental O2 HS PRN PCP: Chema ([facility]) Dispo: Plan for discharge home tomorrow by spinal orthopedics, will continue to follow Admission and Anticipated Discharge Date Admission Date: July 05, 2020 Subjective s/p lumber decompression sugary Patient said he was doing earlier today, walked on the hallway multiple times, able to climb up stairs with physical therapist After returning from activity, back pain got worse, Having nonproductive cough, with coughing spells experiencing back pain, and shooting radiating pain down to left thigh. Does not have any shortness of breath no fever chills or chest pain Had bowel movement already No nausea vomiting or abdominal discomfort Review of Systems Review of Systems: All systems reviewed & are unremarkable except as noted in Subjective Physical Exam Physical Exam: Physical exam: General: No acute distress, alert awake oriented x3 HEENT: PERRLA, EOMI, Heart: Regular S1-S2, no carotid bruit, no JVD, no lower extremity edema Lungs: Clear to auscultate, no wheeze or rales Abdomen: Soft nontender, no organomegaly Extremity: s/p back surgery , TACO drain present , normal strength on bilat lower ext , normal sensation Neuro: No focal neurological deficit normal speech, normal visual field, Motor strength : normal both upper and lower extremity, sensation intact Psych: Alert awake oriented x3, normal affect Results & Data Results & Data ([facility]) Vital Signs (Past 12 Hours) Vital Signs Temp Pulse Resp BP Pulse Ox 07/07/20 07:20 37.2 C 72 16 127/78 95
[2020-07-07] MEDS: FERROUS GLUCONATE 324 MG TAB PO SCH (20:43)
[2020-07-07] MEDS: DOCUSATE SODIUM/SENNA 50/8.6MG TAB PO SCH (20:43)
[2020-07-07] MEDS: ATORVASTATIN 20 MG TAB PO SCH (20:43)
[2020-07-07] MEDS: INSULIN GLARGINE SOLOSTAR 100 UNITS/ML 3 ML PEN SC SCH (20:47)
[2020-07-08 06:24] LABS: Hematocrit (blood only) 30.8 % (42-52); Hemoglobin 9.8 g/dL (14.0-18.0)
[2020-07-08] MEDS: INSULIN ASPART 100 UNITS/ML 3 ML PEN SC SCH ×2 (07:49→12:40)
[2020-07-08] MEDS: PREGABALIN 100 MG CAP PO SCH (07:54)
[2020-07-08] MEDS: MULTIVITAMIN TAB PO SCH (07:54)
[2020-07-08] MEDS: CHOLECALCIFEROL 1,000 UNITS 25 MCG TAB PO SCH (07:54)
[2020-07-08] MEDS ORDERED: FERROUS GLUCONATE 324 MG TAB PO SCH (08:00)
[2020-07-08] MEDS ORDERED: ASCORBIC ACID 500 MG TAB PO SCH (09:00)
--- NOTE | 2020-07-08 09:22 | Discharge Summary ---
Date of Service July 08, 2020 Principal Diagnosis Lumbar spinal stenosis with neurogenic claudication Discharge Data Allergies Allergy/AdvReac Type Severity Reaction Status Date / Time Sulfa (Sulfonamide Allergy Unknown Unknown Verified 07/05/20 06:32 Antibiotics) SALOMÓN Inhibitors AdvReac Unknown Dyspnea, Verified 07/05/20 06:32 throat swelling Consultations 07/05/20 11:04 Consult Hospitalist Routine Procedures Performed Operation Date: 07/05/20 07:45 Actual Procedures p #1 lumbar decompression bilateral medial facetectomies and foraminotomies L3-4 and L4-5. #2 posterior spinal fusion L4-5. #3 placement posterior instrumentation L4-5. #4 interbody fusion L4-5. #5 placement peek cage 15 x 26 mm at L4-5. #6 placement locally harvested morselized autograft and posterior gutters. #7 placement of I factor bone graft in the interbody space and posterior lateral gutters.(Not Applicable) - Christian Mitchell DO Ordered Studies 07/05/20 07:45 FL lumbar spine 2-3V Routine Hospital Course (1) Neurogenic claudication due to lumbar spinal stenosis: Patient underwent lumbar decompression fusion tolerates well second orthopedic floor postoperative. Postop day 1 he was up and ambulating. Postop day #2 TACO drain patient properly. Postop day 3 pain was well controlled excellent strength testing subsequent discharge home. Discharge orders instructions from the chart for further review. Total Time Total Time Spent Total Time Spent (In Minutes): 20 minutes Discharge Plan Discharge Items Patient Disposition: Home - Home Health Services Reason For Visit: Spinal Stenosis, Lumbar Region with Neurogenic Discharge Diagnosis: Lumbar spinal stenosis with neurogenic claudication Activity: Per Instructions section Non-emergency contact: Primary Care Provider Call non-emergency contact if: you have any medication questions Follow-up/Referrals: Christian Mitchell DO [Surgeon] - Jcaob Bear DO [Primary Care Provider] - Diet: Carb Consistent or DM2 and Heart Healthy Addtl Attending Provider Instructions: ACTIVITY RECOMMENDATIONS: SELF CARE INSTRUCTIONS AFTER THORACIC/LUMBAR FUSIONS 1. You may walk to your tolerance. It is good exercise for your legs and back. Expect some back and intermittent leg aches and pains. 2. You may perform "counter-top" level activities (make a sandwich, felipe with a project, etc.). 3. No bending or lifting of more than 10 pounds or back twisting of any nature (roll like a log when turning in bed). 4. You may ride in a car for 20-30 minutes at a time. No driving until after your first visit with your doctor. 5. Frequent changes of position and restricting sitting to 30 minutes at a time will help limit the amount of back spasms and stiffness you may experience. 6. You may discontinue the use of ambulatory aids (cane, crutches, etc.) once your strength and confidence allow. 7. You may manager managing the shower and let water strike your incision when you arrive home at least once daily. Do not take a tub bath, sit in a hot tub or go into a swimming pool until after your first recheck in the office. SPECIAL CARE INSTRUCTIONS: VERY IMPORTANT TO READ AND REVIEW A. Your surgical incision has been closed with a cosmetic suture under the skin that will dissolve in about 6 weeks. In 14 days, you can use a pair of clean scissors and cut the suture that is left outside of the skin at the ends of your incision. 1. The small skin tapes can be removed 7 days after surgery if they have not fallen off by that point. 2. You may keep the wound open to air as much as possible to promote healing after post-op day number 5 unless told otherwise by your doctor. 3. If you think the wound looks like it is becoming infected (redness or wor sening drainage) and/or you are experiencing fever, chill or worsening back pain and muscle spasms, contact the office so that we may evaluate you as soon as possible. B. Complications are uncommon, but please contact us if you have any signs or symptoms of: 1. wound infection (fever higher than 102.5 degrees F, redness, separation of wound, drainage, or increasing pain from the incision) 2. blood clots in legs (pain, swelling, redness and warmth in legs) 3. urinary tract infection (fever higher than 102.5 degrees F, burning upon urination or increased frequency of urination) 4. nerve problems (inability to walk on your toes or heels, numbness, loss of bowel or bladder control) 5. any other symptoms that concern you C. Please call the office at if you have any concerns or questions about your operation or recovery. D. No smoking! Smoking drastically decreases the chance of a solid fusion. E. Do not take any anti-inflammatory medications (Indocin, Advil, Motrin, Aspirin, Naprosyn, etc.) as these may inhibit the chance of a solid fusion. Tylenol is okay to take for pain. MANAGING PAIN AFTER SPINAL SURGERY 1. Narcotic medication is intended for short-term use and will be provided for surgical pain. Surgical pain usually lasts for a period of 4-6 weeks. Narcotic medication includes Percocet, Vicodin, Darvocet, Tylenol #3 or Lortab. 2. Longer-term pain is more appropriately treated with non-narcotic medication such as Tylenol ES. 3. Muscle spasm is not appropriately treated with narcotics. Muscle relaxers such as Soma, Flexeril or Skelaxin can be used along with Tylenol ES. 4. Remember that we all live with some "aches and pains". This is not unusual or uncommon after an injury or as we get older. a. Back pain is expected and may include muscle spasms for 4 to 6 weeks after surgery. The pain should gradually improve. If the pain worsens for no apparent reason, please contact the office. b. Intermittent leg pain may also be experienced and should not be concerned about unless it worsens for no apparent reason. If so, please contact the office. 5. We will provide appropriate medication within the normal guidelines of their prescribed use. We will also be very cautious and aware of potential abuse and extended duration of patients' medication needs. a. Pain medications are for your comfort and to assist with sleep and rest so that the tissue can heal. They are not provided in order to return to normal activity and should not be used through the day. To do so or worsening pain at night can result from ongoing tissue damage and development of tolerance to the prescribed medicine. 6. Please allow 2-3 days to process refills. Prescriptions will not be mailed but must be picked up at the office. FOLLOW UP VISIT: Keep your scheduled follow-up appointment. Any questions, please call the office at . Addtl Pallet Assembler Provider Instructions: You are noted to have acute blood loss anemia due to back surgery and drain , do not take Diclofenac can cause severe acid reflux and gastritis , causing GI bleed , worsening of anemia increase Iron supplement Ferrous Gluconate BID , take Vitamin C to increase iron absorption Lab work : complete blood count in a week for assessment of anemia Pending Studies at Discharge: No Stand-Alone Forms: My [facility], Smoking Cessation Medications and DC Order Prescriptions: New ascorbic acid (vitamin C) [Vitamin C] 500 mg capsule, extended release 500 mg PO DAILY Qty: 30 RF: 0 oxycodone 5 mg tablet 5 mg PO Q6H PRN (Reason: pain, severe) Qty: 30 RF: 0 tramadol 50 mg tablet 50 mg PO Q6H PRN (Reason: pain, moderate) Qty: 30 RF: 0 Continued pregabalin [Lyrica] 100 mg Capsule 100 mg PO QID RF: 0 coQ10 (ubiquinol) 200 mg Capsule 200 mg PO QPM RF: 0 Vitamin D3 100 mcg (4,000 unit) Capsule 100 mcg PO BID RF: 0 multivitamin Tablet 1 tab PO QAM RF: 0 atorvastatin 20 mg Tablet 20 mg PO HS RF: 0 metformin 1,000 mg Tablet 1,000 mg PO BID RF: 0 Januvia 100 mg Tablet 100 mg PO DAILY RF: 0 Lantus U-100 Insulin 24 units INJ HS RF: 0 insulin lispro 8 units INJ TIDWMEAL RF: 0 Changed ferrous gluconate 324 mg (38 mg iron) Tablet 324 mg PO BID Qty: 0 RF: 0 Discontinued diclofenac sodium 75 mg Tablet,Delayed Release (Dr/Ec) 75 mg PO BID RF: 0 Discharge Orders: Discharge Order (Routine); Ordered 07/08/20 Ordered By: Christian Vidal/Other Patient Handouts: Managing Type 2 Diabetes, Managing Diabetes: The A1C Test Admission Data Admit Date/Time: 07/05/20 09:54 Attending Provider: Christian Mitchell Admit Provider: Christian Mitchell Primary Care Provider: Jacob Bear Other Providers: Samantha Mcgregor
--- NOTE | 2020-07-08 10:00 | Communication Note ---
Date of Service: July 08, 2020 Acute blood loss anemia Chart reviewed done, patient was not seen personally as remained medically stable, getting discharged home today Patient developed acute blood loss anemia Secondary to postoperative status, Estimated blood loss of 7.0 mL intraoperatively Caused nearly 3 g/dl drop in hemoglobin Preop H&H was 12.5 g/dl and 39.6%. Operatively, repeat values were 9.8 g/dl and 30.8%. Patient did not had any symptoms of dizzy spell, lightheadedness or dyspnea on exertion No indication for blood transfusion Discharge home today with iron supplement Asked to avoid NSAIDs to prevent gastritis/esophagitis which can worsen anemia Repeat blood work, CBC in 1 week Patient is discharged home today spinal orthopedics in stable condition Samantha Mcgregor MD
[2020-07-08] MEDS: traMADol HCL 50 MG TABLET PO PRN (12:17)
== END 2020-07-08 13:11 | disposition home health service (06) | DRG 454 ==
LOC: ASU 05:55 → 3E 09:54